=== PATIENT | female | born 1985 ===

== ENCOUNTER 2023-05-13 08:37 | Emergency (ER) | payer BC ==
[2023-05-13] MEDS ORDERED: Sodium Chloride 0.9% 2.5 ML Syringe FLUSH PRN (09:06)
[2023-05-13] MEDS ORDERED: Sodium Chloride 0.9% 10 ML Syringe FLUSH PRN (09:06)
[2023-05-13] MEDS ORDERED: Propranolol 10 MG Tab PO ONE (09:08)
[2023-05-13 09:31] LABS: BASOPHILS PERCENT AUTO 0.4 % (0.0-1.5); EOSINOPHILS ABSOLUTE AUTO 0.1 K/uL (0.0-0.7); HEMATOCRIT 40.7 % (36.0-46.0); HEMOGLOBIN 13.4 g/dL (12.0-16.0); LYMPHOCYTES ABSOLUTE AUTO 1.4 K/uL (0.6-2.4); LYMPHOCYTES PERCENT AUTO 29.2 % (16.0-40.0); MEAN CORPUSCULAR HGB CONC 32.9 g/dL (31.0-37.0); MEAN CORPUSCULAR VOLUME 85.1 fL (80.0-98.0); MONOCYTES ABSOLUTE AUTO 0.3 K/uL (0.0-0.8); NEUTROPHILS ABSOLUTE AUTO 2.9 K/uL (1.4-5.7); NEUTROPHILS PERCENT AUTO 61.4 % (48.0-80.0); NRBC ABSOLUTE 0 K/uL; PLATELET COUNT,PLT 265 K/uL (150-400); RED BLOOD CELL COUNT 4.78 M/uL (4.30-5.90); WHITE BLOOD CELL COUNT,WBC 4.65 K/uL (4.0-11.0)
[2023-05-13 10:11] LABS: BLOOD UREA NITROGEN,BUN 12 mg/dL (7.0-18.0); CALCIUM 9.1 mg/dL (8.5-10.1); CARBON DIOXIDE,CO2 24.3 mmol/L (21.0-32.0); CHLORIDE,CL 105 mmol/L (98-107); CREATININE 0.9 mg/dL (0.6-1.0); ESTIMATED GFR 85 mL/min (>60); GLUCOSE RANDOM 103 mg/dL (74-106); MAGNESIUM 2.2 mg/dL (1.8-2.4); PHOSPHORUS 3.9 mg/dL (2.6-4.7); POTASSIUM,K 4.1 mmol/L (3.5-5.1); SODIUM,NA 141 mmol/L (136-145); TSH ULTRASENSITIVE 1.26 uIU/mL (0.36-3.74)
== END 2023-05-13 11:41 | disposition home or self-care (01) ==
LOC: MW.ED 08:37
DX: F41.9 Anxiety disorder, unspecified (principal); F43.10 Post-traumatic stress disorder, unspecified; J45.909 Unspecified asthma, uncomplicated; Z88.0 Allergy status to penicillin; Z91.048 Other nonmedicinal substance allergy status; Z79.899 Other long term (current) drug therapy
CPT/HCPCS: 36415; 71045; 80048; 83735; 84100; 84443; 84484; 84703; 85025; 85379; 93005; 99285; A9270; J3490; 93010; 99283

== ENCOUNTER 2025-05-20 16:56 | Inpatient (IN) | payer BC ==
[2025-05-20] MEDS ORDERED: Water For Irrigation,Sterile 1,000 ML Container IRR PRN (18:14)
[2025-05-20] MEDS ORDERED: Sodium Chloride 0.9% 10 ML Syringe FLUSH PRN (18:14)
[2025-05-20] MEDS ORDERED: Sodium Chloride 0.9% 2.5 ML Syringe FLUSH PRN (18:14)
[2025-05-20] MEDS ORDERED: Carboprost Tromethamine 250 MCG/1 mL Vial IM PRN (18:14)
[2025-05-20] MEDS ORDERED: Oxytocin/0.9 % Sodium Chloride 30 UNIT/500 ML BAG IV SCH (18:15)
[2025-05-20] MEDS ORDERED: Terbutaline 1 MG/ML SDV SUBCUT PRN (18:19)
[2025-05-20] MEDS ORDERED: ePHEDrine 50 MG/ML SDV IVPUSH PRN (19:08)
[2025-05-20] MEDS ORDERED: dexmedeTOMIDine HCl 200 MCG/2 ML SDV EPIDUR SCH (19:15)
[2025-05-20] MEDS ORDERED: Ropivacaine HCl/PF 400 MG in Premix Bag 1 BAG EPIDUR SCH (19:15)
[2025-05-20 20:20] LABS: MEAN PLATELET VOLUME 10.5 fL (9.4-12.3); NRBC ABSOLUTE 0.00 K/uL (0.00-0.02); NRBC PERCENT 0.0 /100WBC (0.0-0.2); PLATELET COUNT,PLT 135 K/uL (150-400); RED BLOOD CELL COUNT 4.27 M/uL (4.10-5.30); WHITE BLOOD CELL COUNT,WBC 11.65 K/uL (3.9-11.3)
[2025-05-20] MEDS: Lactated Ringers 1,000 ML IV SCH (20:21)
[2025-05-20] MEDS: Oxytocin/0.9 % Sodium Chloride 30 UNIT/500 ML BAG IV SCH (20:22)
[2025-05-20 20:49] LABS: CREATININE,URINE RAND 58.9 mg/dL; PROTEIN CREATININE RATIO,URINE 0.1; PROTEIN,URINE RANDOM 8.2 mg/dL (<11.9)
[2025-05-20 20:54] LABS: A/G RATIO 0.7 (0.9-1.6); ALANINE AMINOTRANSFERASE,ALT 21.0 IU/L (14-63); ASPARTATE AMNIOTRANSFERASE,AST 31.0 IU/L (15-37); BILIRUBIN TOTAL 0.3 mg/dL (0.2-1.0); BLOOD UREA NITROGEN,BUN 6.0 mg/dL (7.0-18.0); CARBON DIOXIDE,CO2 18.7 mmol/L (21.0-32.0); CHLORIDE,CL 104.0 mmol/L (98-107); CREATININE 0.6 mg/dL (0.6-1.0); EST CRCL DRUG DOSING (CG) 119.01 mL/min; GLUCOSE RANDOM 72.0 mg/dL (74-106); POTASSIUM,K 4.0 mmol/L (3.5-5.1); PROTEIN TOTAL,TP 6.9 g/dL (6.4-8.2); SODIUM,NA 137.0 mmol/L (136-145)
[2025-05-20 20:59] LABS: ESTIMATED GFR 118.0 mL/min (>60)
[2025-05-21] MEDS: Butorphanol 1 MG/ML SDV IVPUSH PRN (00:18)
[2025-05-21] MEDS: Ondansetron 4 MG/2 ML SDV IVPUSH PRN ×2 (01:22→12:15)
[2025-05-21] MEDS ORDERED: Aluminum Hydroxide/Magnesium Hydroxide/Simethicone Susp 30 ML Cup PO PRN (02:55)
[2025-05-21 03:08] LABS: PH,UMBILICAL ARTERIAL 7.36 (7.18-7.38); PH,UMBILICAL VENOUS 7.35 (7.25-7.45)
[2025-05-21] MEDS: Witch Hazel Medicated Pads 40/Jar TOP PRN (03:15)
[2025-05-21] MEDS: Benzocaine/Menthol 20%-0.5% Spray 78 GM Cannister TOP PRN (03:16)
[2025-05-21] MEDS: Lanolin 100% Cream 7 GM Tube TOP PRN (03:16)
[2025-05-21 06:23] LABS: BASOPHILS ABSOLUTE AUTO 0.02 K/uL (0.00-0.20); BASOPHILS PERCENT AUTO 0.1 % (0.0-1.0); EOSINOPHILS ABSOLUTE AUTO 0.00 K/uL (0.00-0.45); EOSINOPHILS PERCENT AUTO 0.0 % (0.0-6.0); IMMATURE GRAN ABSOLUTE AUTO 0.09 K/uL (0.00-0.05); IMMATURE GRAN PERCENT AUTO 0.6 % (0.0-0.4); LYMPHOCYTES ABSOLUTE AUTO 1.59 K/uL (1.00-4.80); LYMPHOCYTES PERCENT AUTO 10.0 % (24.0-44.0); MEAN PLATELET VOLUME 9.6 fL (9.4-12.3); MONOCYTES ABSOLUTE AUTO 1.17 K/uL (0.00-0.80); MONOCYTES PERCENT AUTO 7.3 % (0.0-8.0); NEUTROPHILS ABSOLUTE AUTO 13.07 K/uL (1.80-7.70); NEUTROPHILS PERCENT AUTO 82.0 % (41.0-71.0); NRBC ABSOLUTE 0.00 K/uL (0.00-0.02); NRBC PERCENT 0.0 /100WBC (0.0-0.2); PLATELET COUNT,PLT 192 K/uL (150-400); RED BLOOD CELL COUNT 3.58 M/uL (4.10-5.30); WHITE BLOOD CELL COUNT,WBC 15.94 K/uL (3.9-11.3)
== END 2025-05-22 12:28 | disposition home or self-care (01) | DRG 560 ==
LOC: MW.OBCHECK 16:56 → MW.OB 17:03 → MW.OBCHECK 23:00 → MW.OB 23:00 → OBSVTOIN 05-21 01:42 → MW.OB 05-21 05:05
PROVIDERS: ADMIT Obstetrics & Gynecology; ATTEND Obstetrics & Gynecology
PROC: 10E0XZZ Delivery of Products of Conception, External Approach (ICD-10-PCS; principal; 2025-05-21)
PROC: 10907ZC Drainage of Amniotic Fluid, Therapeutic from Products of Conception, Via Natural or Artificial Opening (ICD-10-PCS; 2025-05-21)
PROC: 3E033VJ Introduction of Other Hormone into Peripheral Vein, Percutaneous Approach (ICD-10-PCS; 2025-05-21)
PROC: 0HQ9XZZ Repair Perineum Skin, External Approach (ICD-10-PCS; 2025-05-21)
DX: O13.4 Gestational [pregnancy-induced] hypertension without significant proteinuria, complicating childbirth (principal); Z3A.38 38 weeks gestation of pregnancy; Z37.0 Single live birth; O98.52 Other viral diseases complicating childbirth; Z79.899 Other long term (current) drug therapy; Z98.890 Other specified postprocedural states; Z88.0 Allergy status to penicillin; O99.12 Other diseases of the blood and blood-forming organs and certain disorders involving the immune mechanism complicating childbirth; D69.6 Thrombocytopenia, unspecified; O70.0 First degree perineal laceration during delivery; B00.9 Herpesviral infection, unspecified
CPT/HCPCS: 36415; 59409; 76815; 76815-26; 80053; 82570; 82803; 84156; 84550; 85025; 85027; 86592; 86850; 86900; 86901; A9270-GY; J0595; J2003; J2405; J2590; J7120

== ENCOUNTER 2025-05-23 17:17 | Emergency (ER) | payer BC ==
[2025-05-23] MEDS ORDERED: Sodium Chloride 0.9% 10 ML Syringe FLUSH PRN (18:18)
[2025-05-23] MEDS ORDERED: Sodium Chloride 0.9% 2.5 ML Syringe FLUSH PRN (18:18)
[2025-05-23] MEDS: Ketorolac 30 MG/ML SDV IVPUSH ONE (18:33)
[2025-05-23] MEDS: Ondansetron 4 MG/2 ML SDV IVPUSH ONE (18:33)
[2025-05-23] MEDS: diphenhydrAMINE 50 MG/ML SDV IVPUSH ONE (18:36)
[2025-05-23 18:45] LABS: BASOPHILS ABSOLUTE AUTO 0.03 K/uL (0.00-0.20); BASOPHILS PERCENT AUTO 0.3 % (0.0-1.0); EOSINOPHILS ABSOLUTE AUTO 0.66 K/uL (0.00-0.45); EOSINOPHILS PERCENT AUTO 6.4 % (0.0-6.0); IMMATURE GRAN ABSOLUTE AUTO 0.06 K/uL (0.00-0.05); IMMATURE GRAN PERCENT AUTO 0.6 % (0.0-0.4); LYMPHOCYTES ABSOLUTE AUTO 2.87 K/uL (1.00-4.80); LYMPHOCYTES PERCENT AUTO 27.9 % (24.0-44.0); MEAN PLATELET VOLUME 9.2 fL (9.4-12.3); MONOCYTES ABSOLUTE AUTO 0.63 K/uL (0.00-0.80); MONOCYTES PERCENT AUTO 6.1 % (0.0-8.0); NEUTROPHILS ABSOLUTE AUTO 6.05 K/uL (1.80-7.70); NEUTROPHILS PERCENT AUTO 58.7 % (41.0-71.0); NRBC ABSOLUTE 0.00 K/uL (0.00-0.02); NRBC PERCENT 0.0 /100WBC (0.0-0.2); PLATELET COUNT,PLT 218 K/uL (150-400); RED BLOOD CELL COUNT 3.81 M/uL (4.10-5.30); WHITE BLOOD CELL COUNT,WBC 10.30 K/uL (3.9-11.3)
[2025-05-23 19:14] LABS: A/G RATIO 0.6 (0.9-1.6); ALANINE AMINOTRANSFERASE,ALT 24.0 IU/L (14-63); ASPARTATE AMNIOTRANSFERASE,AST 35.0 IU/L (15-37); BILIRUBIN TOTAL 0.2 mg/dL (0.2-1.0); BLOOD UREA NITROGEN,BUN 7.0 mg/dL (7.0-18.0); CARBON DIOXIDE,CO2 25.0 mmol/L (21.0-32.0); CHLORIDE,CL 104.0 mmol/L (98-107); CREATININE 0.7 mg/dL (0.6-1.0); EST CRCL DRUG DOSING (CG) 102.01 mL/min; GLUCOSE RANDOM 87.0 mg/dL (74-106); POTASSIUM,K 4.0 mmol/L (3.5-5.1); PRO B-TYPE NATRIUR PEPT,BNPPRO 212.0 pg/mL (0-125); PROTEIN TOTAL,TP 6.5 g/dL (6.4-8.2); SODIUM,NA 138.0 mmol/L (136-145)
[2025-05-23 19:15] LABS: ESTIMATED GFR 113.0 mL/min (>60)
[2025-05-23] MEDS: NIFEdipine 30 MG Tab.ER PO ONE (20:32)
== END 2025-05-23 20:35 | disposition home or self-care (01) ==
LOC: MW.ED 17:17
DX: O16.5 Unspecified maternal hypertension, complicating the puerperium (principal); J45.909 Unspecified asthma, uncomplicated; Z79.51 Long term (current) use of inhaled steroids; Z79.899 Other long term (current) drug therapy; Z88.8 Allergy status to other drugs, medicaments and biological substances; Z88.1 Allergy status to other antibiotic agents; Z91.048 Other nonmedicinal substance allergy status
CPT/HCPCS: 36415; 70450; 80053; 83880; 85025; 96374; 96375; 99284; A9270; J1885; J2405; J7030; 99283